=== PATIENT | male | born 1970 | race Caucasian/White ===

== ENCOUNTER 2021-11-20 13:51 | Outpatient (REF) | payer OTHER, SELFPAY ==
[2021-11-20 16:18] LABS: CT PCR NOT DETECTED (Not Detect.); NG PCR NOT DETECTED (Not Detect.)
== END 2021-11-20 13:52 | disposition home or self-care (01) ==
LOC: HO.LNP 13:51
PROVIDERS: Visit Provider Internal Medicine
DX: N34.2 Other urethritis (principal)
CPT/HCPCS: 87491; 87591

== ENCOUNTER 2023-11-13 10:33 | Outpatient (AMB) | payer OTHER, SELFPAY ==
--- NOTE | 2023-11-13 10:12 | MHC.OFFWIV ---
Intake Vital Signs 11/13/23 10:44 Weight 168 lb BP 140/80 H Blood Pressure Location Lt brachial Position Sitting Pulse 85 Pulse Source Pulse Oximeter Temp 98.5 F Temp Source Temporal Artery Scan Pulse Oximetry (%) 97 Oxygen Delivery Method Room Air Intake Visit Reasons: EP upset stomach Intake Note: pt is here today for upset stomach started 2 weeks ago Patient Tobacco Use Status: Never used Tobacco Allergies penicillin V Allergy (Unknown, Verified 11/13/23 10:40) hives/childhood allergy Penicillins [PENICILLINS] Allergy (Unknown, Verified 11/13/23 10:40) UNKNOWN Do you need a note to return to daycare/school/sports/work: No HPI HPI Comments History of Present Illness Details He presents to office with stomach upset 3 weeks ago had a stomach bug He took probiotics and tea which helped Prior to stomach bug he had a regular once a day formed BM He said now he has a slight loose stool every morning x 1 at 6:30 and then within the house has a similar BM No blood or black Not watery He denies formed stool since No sharp abdominal pain, + gas, and bloating/upset Has tried to cut out alcohol and caffeine these last 2 weeks without change Diet is kale salad/tofu Beer on occasion No nausea or vomiting He denies colonoscopy in past Has Sergei as PCP; last visit was over 1 year ago He tried gas x without relief PFSH Social History Patient Tobacco Use Status: Never used Tobacco Review of Systems Const Denies body aches, Denies chills, Denies fatigue and Denies fever(s) Card Denies chest pain and Denies dyspnea Resp Denies cough and Denies dyspnea GI Reports abdominal pain (upset. No pain), Denies melena, Reports bloating, Denies hematochezia, Denies constipation, Denies fecal incontinence, Denies diarrhea, Reports loose stools, Denies nausea and Denies vomiting Musc Denies back pain Endo Denies fatigue Physical Exam Vital Signs: Last Vital Signs Temp 98.5 F 11/13/23 10:44 Pulse 85 11/13/23 10:44 BP 140/80 H 11/13/23 10:44 Pulse Ox 97 11/13/23 10:44 Oxygen Delivery Method Room Air 11/13/23 10:44 General: Non-toxic, NAD. Speaking full sentences. Skin: Warm dry throughout Eye: EOMI HENT: Airway patent. Uvula midline. No pharyngeal erythema or edema. No HOSE TURNER. Respiratory: CTA bilaterally. No wheezes, rales or rhonchi Cardiac: RRR. No murmur Abdominal: BS present x 4. No tenderness to light and deep palpation. No rebound or guarding. No mass. MSK: Full ROM extremities. Neurology: A/O. No aphasia or facial droop. Gait without abnormality Psych: Good mood and affect Assessment & Plan Assessment & Plan (1) Loose stools: Code(s): R19.5 - Other fecal abnormalities Plan: Patient seen and evaluated. Non-toxic appearing, in NAD No risk factors for travelers diarrhea and he denies risk factors for c diff and there is no abnormal odor, stool is loose, not watery We discussed d/c probiotics Discussed need for colonoscopy and note will be sent to his PCP to schedule GI appointment. Pt aware of this We discussed bland diet We discussed s/s of concern that warrants repeat evaluation Patient gave verbal understanding and had no additional questions or concerns at time of discharge All questions answered Coding Level of Care Code Est Pt Level 3 (68924) Diagnoses Loose stools R19.5
[2023-11-13 10:44] VITALS: BP 140/80; PULSE 85; TEMP 36.9; O2SAT 97
== END 2023-11-13 11:48 | disposition home or self-care (01) ==
PROVIDERS: PCP Nurse Practitioner Family; Visit Provider Physician Assistant
DX: R19.5 Other fecal abnormalities (principal)
CPT/HCPCS: 99213

== ENCOUNTER 2024-02-10 13:33 | Outpatient (AMB) | payer OTHER, SELFPAY ==
[2024-02-10 13:36] VITALS: BP 147/88; PULSE 82; BMI 25.4
--- NOTE | 2024-02-10 13:36 | A.OFFVIS_ITS ---
Vital Signs 02/10/24 13:36 Height 5 ft 7 in Weight 162 lb 4.163 oz BMI 25.4 BP 147/88 H Blood Pressure Location Rt brachial Position Sitting Pulse 82 Intake Visit Reasons: Colonoscopy Screening Intake Note: Patient presents to in office visit today as a new patient for colonoscopy screening. CC: Patient reports that he had the norovirus back in the winter and ever since he has been having IBS symptoms . He went to see a survey crew chief and after that he states that 5 days of the week he is doing well but there are usually two days that he gets diarrhea. Per patient he has been watching his diet and taking probiotics but he does not feel is helping much. He also reports some gas and abdominal bloating. Patient quit drinking alcohol as well. 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 Accompanied by: Self / Same As Patient Allergies penicillin V Allergy (Unknown, Verified 02/10/24 13:42) hives/childhood allergy Penicillins [PENICILLINS] Allergy (Unknown, Verified 02/10/24 13:42) UNKNOWN HPI Comments Details: A 53 y/o with IBS sx- since norovirus last winter- cannot reset himself- he has done accupuncture-it elevates his mood-gives more energy- then has 5 or more days he has normal stool- then will have a loose BM-abdominal cramping resolves most times after bm He has 1-2 BM a day- sometimes can be loose- sees a survey crew chief- Appetite is good he has a very healthy diet No nausea, vomiting hematemesis, hematochezia fever or chills PFSH Surgical History No pertinent past surgical history Family History Paternal Uncle Lung cancer Social History (Updated 02/10/24 @ 13:54 by Sandra Julien PA-C) Alcohol intake: former Comment: quit drinking about 5 months ago Patient Tobacco Use Status: Never used Tobacco Current occupation: on [employer] Review of Systems Const All systems reviewed & are unremarkable except as noted in HPI and below Card Denies chest pain and Denies dyspnea Resp Denies dyspnea GI Denies abdominal pain, Reports GI cramping, Reports loose stools, Denies nausea and Denies vomiting Physical Exam Vital Signs: Last Vital Signs Pulse 82 02/10/24 13:36 BP 147/88 H 02/10/24 13:36 BMI result Body Mass Index 25.4 Const General: cooperative, healthy appearing, comfortable and no acute distress Orientation/consciousness: patient oriented x3 Limitations: no limitations Eyes Conjunctivae: conjunctivae normal Sclerae: sclerae normal Resp Effort & Inspection: normal respiratory effort and able to speak in complete sentences Auscultation: clear to auscultation bilaterally, no rales, no rhonchi and no wheezes Cardio Rate: regular rate Rhythm: regular rhythm Heart sounds: S1 normal heart sound present and S2 normal heart sound present GI Palpation (GI): Soft to palpation and nontender Auscultation: normal bowel sounds Skin General skin exam: no rashes or lesions noted Neuro General: patient oriented x3 Extrem General: Yes full ROM Psych Appearance: grossly normal and well kempt Mental Status: mental status grossly normal Speech and movement: Normal speech and movement present Affect: Anxious affect present Thought process: Normal thought process present Thought content: Normal thought content present Insight: Good insight present (Psych) Judgement: Good judgement present (Psych) Assessment & Plan Assessment & Plan (1) Loose stools: Comment: Very pleasant somewhat anxious 53-year-old male Code(s): R19.5 - Other fecal abnormalities Category: Medical Plan: Colonoscopy Lab Trial dicyclomine (2) Screening for colon cancer: Code(s): Z12.11 - Encounter for screening for malignant neoplasm of colon Category: Medical Plan: Colonoscopy Plan low fod map Orders: Orders Complete Blood Count Auto Diff 02/10/24 K52.9 - Noninfective gastroenteritis and colitis, unspecified Comprehensive Met. Panel 02/10/24 K58.9 - Irritable bowel syndrome without diarrhea Transglutaminase IgA 02/10/24 R19.7 - Diarrhea, unspecified Thyroid Stimulating Hormone 02/10/24 R19.8 - Other specified symptoms and signs involving the digestive system and abdomen Endomysial IgA rflx Titer 02/10/24 R19.5 - Other fecal abnormalities Erythrocyte Sedimentation Rate 02/10/24 R19.7 - Diarrhea, unspecified Colonoscopy - GI Use Only 02/10/24 Z12.11 - Encounter for screening for m alignant neoplasm of colon Medications: New bisacodyl (Dulcolax (bisacodyl)) Day before procedure @ 12 noon Take 4 tablets by mouth followed by large glass of water 20 mg (4 x 5 mg) PO ONCE 1 day PRN 4 tabs 0RF colonoscopy prep Z12.11 - Encounter for screening for malignant neoplasm of colon dicyclomine 10 mg PO BID 30 days 60 caps 0RF polyethylene glycol 3350 (Miralax) Take as directed by mouth the day before your procedure. 238 grams PO ONCE 1 day PRN 238 grams 0RF laxative effect Patient Instructions: Colonoscopy dicyclomine= he will call with progress labs He will call for results-any indication needs EGD will add Coding Level of Care Code New Pt Level 3 (37218) Diagnoses Loose stools R19.5 Screening for colon cancer Z12.11 Time Spent (min) 30
== END 2024-02-10 15:27 | disposition home or self-care (01) ==
PROVIDERS: PCP Nurse Practitioner Family; Visit Provider Physician Assistant
DX: R19.5 Other fecal abnormalities (principal); Z12.11 Encounter for screening for malignant neoplasm of colon
CPT/HCPCS: 99203

== ENCOUNTER 2024-02-10 13:33 | Outpatient (REF) | payer OTHER, SELFPAY ==
[2024-02-10 14:41] LABS: MANUAL DIFF FLAG NO
[2024-02-10 15:34] LABS: Basophils Absolute Auto 0.1 X10*3/uL (0.0-0.2); Basophils Percent Auto 0.7 % (0-2); Eosinophils Absolute Auto 0.6 X10*3/uL (0.0-0.4); Eosinophils Percent Auto 8.2 % (0-4); Hematocrit 39.1 % (42.0-52.0); Hemoglobin 13.2 g/dl (14.0-18.0); Imm Gran Abs Auto 0.02 X10*3/uL (0.00-0.03); Imm Gran Pct Auto 0.3 % (0.0-0.4); Lymphocytes Absolute Auto 2.4 X10*3/uL (1.2-4.9); Lymphocytes Percent Auto 32.6 % (20-40); Mean Corpuscular HGB Conc 33.8 g/dl (31.0-36.0); Mean Corpuscular Hemoglobin 29.6 pg (27.0-33.0); Mean Corpuscular Volume 87.7 fL (80.0-98.0); Mean Platelet Volume 10.6 fL (9.4-12.4); Monocytes Absolute Auto 0.6 X10*3/uL (0.1-1.2); Monocytes Percent Auto 8.4 % (2-11); Neutrophils Absolute Auto 3.6 x10*3/uL (2.0-8.3); Neutrophils Percent Auto 49.8 % (45-73); Platelet Count 240 X10*3/uL (160-400); Red Blood Count 4.46 X10*6/uL (4.60-5.80); Red Cell Distribution Width 12.8 % (11.0-16.0); White Blood Count 7.3 X10*3/uL (4.8-10.8)
[2024-02-10 16:21] LABS: Erythrocyte Sedimentation Rate 6 MM/HR (0-15)
[2024-02-10 16:26] LABS: Alanine Aminotransferase 22 U/L (0-40); Albumin Level 4.8 g/dL (3.5-5.0); Alkaline Phosphatase 84 U/L (39-117); Anion Gap 13 (12-20); Aspartate Amino Transferase 19 U/L (5-37); Bilirubin Total 0.3 mg/dL (0.0-1.0); Blood Urea Nitrogen 15 mg/dL (9-16); Calcium 9.8 mg/dL (8.4-10.2); Carbon Dioxide 27 mmol/L (22-29); Chloride 103 mmol/L (96-108); Estimated Glomerular Filt Rate > 60; Glucose Random 91 mg/dL (60-115); Potassium 3.5 mmol/L (3.3-5.1); Sodium 139 mmol/L (135-145); Total Protein 7.3 g/dL (6.5-8.0)
[2024-02-10 16:41] LABS: Thyroid Stimulating Hormone 0.92 uIU/mL (0.32-4.0)
[2024-02-12 20:09] LABS: Transglutaminase IgA <1.0 U/mL
[2024-02-15 12:13] LABS: Endomysial IgA Antibody Negative (Negative)
== END 2024-02-10 13:34 | disposition home or self-care (01) ==
LOC: HO.LAB 13:33
PROVIDERS: PCP Nurse Practitioner Family; Visit Provider Physician Assistant
DX: R19.8 Other specified symptoms and signs involving the digestive system and abdomen (principal); K52.9 Noninfective gastroenteritis and colitis, unspecified; R19.5 Other fecal abnormalities
CPT/HCPCS: 36415; 80053; 84443; 85025; 85652; 86231; 86364; 99202

== ENCOUNTER 2024-03-20 08:48 | Outpatient (AMB) | payer OTHER, SELFPAY ==
[2024-03-20 08:59] VITALS: BP 158/88; PULSE 79; O2SAT 98; BMI 25.4
--- NOTE | 2024-03-20 08:59 | A.OFFPC_ITS ---
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 Patient reports he has a colonoscopy scheduled for 06/24/24. Patient reports history of IBS and recent visit with Gastroenterology and [facility] [place] [place]- has since eliminated alcohol and coffee- feeling better since eliminating those 2 things. 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 Accompanied by: Self / Same As Patient Allergies penicillin V Allergy (Unknown, Verified 03/20/24 09:25) hives/childhood allergy Penicillins [PENICILLINS] Allergy (Unknown, Verified 03/20/24 09:25) UNKNOWN Medication List - Last Reconciled 03/20/24 by Tammy Scott, POT FIRER- bisacodyl (Dulcolax (bisacodyl)) 20 mg (4 x 5 mg) PO ONCE PRN 1 day dicyclomine 10 mg PO BID 30 days polyethylene glycol 3350 (Miralax) 238 grams PO ONCE PRN 1 day Tobacco use date assessed: 03/20/24 Dental Screening Dental Screen Date: 03/20/24 Did you have a dental visit in the last 12 months?: Yes Was dental information given to patient?: Patient has dentist HPI HPI Comments History of Present Illness Details 53-year-old male with anemia, IBS Health Maintenance: ? Colon to be scheduled along w/ EGD @ [facility] [place] [place] scheduled 06/2024 ? PSA ordered today ? Tdap 2015 Specialists: GI Accupuncture Here today for CPE and to est care. Labs from 02/10/2024 show mild anemia hemoglobin 13.2, hematocrit 39.1, RBCs 4.46, normal electrolytes, normal renal function, normal glucose, normal LFTs, normal TSH reviewed w/ him today. denies overt bleeding. does eat mostly vegetarian diet. does not take MVI or supplements. Monitoring BP at home SBP 120's and DBPs in the 70's Had norovirus 09/2023 recovered then cont w loose stools 2 BMS in the AM 1 solid and 1 loose and irritated, this lasted a few months Was referred to GI, consult note from 02/2024 reviewed. Given rx for dicycloamine, using PRN but has not feeling like he needed it. Doing FODMAP. Quit etoh 10/2023 and dairy and coffee but feels like GI sx are now well controlled. Admits stress can trigger his sx, too. Fried food also trigger sx. Remains active physically. Vision - wears glasses, last exam 2 years ago. Admits changes in his vision, will schedule new appt. Bifocals caused dizziness. Skin - has moles on his back that have been present for years w/o change, denies any new skin lesions. Plan Check screening labs today to include lipid profile, PSA. Check labs to further evaluate the cause of his anemia. We will update via the portal once the results are back. Return to the office in 1 year for complete physical exam, sooner as needed. [facility] Medical History (Updated 03/20/24 @ 12:47 by Tammy Scott, POT FIRER-) Rash Folliculitis Urethritis Loose stools Surgical History No pertinent past surgical history Family History Paternal Uncle Lung cancer Social History (Updated 03/20/24 @ 09:05 by Mira Duckworth [facility]) Household Members: Spouse [facility] Are you a primary animal daycare provider to a significant other at home: No Do you presently have visiting nurse or other home services: No Alcohol intake: former Comment: quit drinking about 5 months ago Patient Tobacco Use Status: Never used Tobacco e-Cigarette/Vaping Use: Never Used Substance Use Type: Marijuana service: No Current occupational status: employed Current occupation: [employer] Cognitive needs: No Hearing needs: No Vision needs: No Questionnaire PHQ-9 Over the last 2 weeks, how often have you been bothered by any of the following problems? 1. Little interest or pleasure in doing things: not at all 2. Feeling down, depressed, or hopeless: not at all 3. Trouble falling or staying asleep, or sleeping too much: not at all 4. Feeling tired or having little energy: not at all 5. Poor appetite or overeating: not at all 6. Feeling bad about yourself - or that you are a failure or have let yourself or your family down: not at all 7. Trouble concentrating on things, such as reading the newspaper or watching television: not at all 8. Moving or speaking so slowly that other people could have noticed. Or the opposite - being so fidgety or restless that you have been moving around a lot more than usual: not at all 9. Thoughts that you would be better off or of hurting yourself in some way: not at all Total score: 0 Depression Screening Interpretation: Negative Depression Screening Done: Yes 75068 - PHQ-9 Billing: Yes Source: Developed by Drs. Daniel Cortes, Destinee Powell, Anthony Morris and colleagues, with an educational davy from [employer]. Thrive Questionnaire Date Thrive assessed: 03/20/24 I am a: Patient What is your living situation today?: I have a steady place to live Within the past 12 months, did the food you bought not last and you didn't have the money to get more?: Never true Within the past 12 months, did you worry whether your food would run out before you got money to buy more?: Never true Do you have trouble paying for medicines?: No Do you have trouble getting transportation to medical appointments?: No Do you have trouble paying your heating and electricity bill?: No Do you have trouble taking care of your child, family member or friend?: No Do you have trouble with day-to-day activities such as bathing, preparing meals, shopping, managing finances, etc.?: No Are you currently unemployed and looking for a job?: No Are you interested in more education?: No Please select the resources that you would like help with: None Currently or been in a relationship where the following occur: No concerns reported THRIVE Score: 0 AUDIT C Alcohol Use Questionnaire (AUDIT-C) 1. How often do you have a drink containing alcohol?: Never 3. How often do you have six or more drinks on one occasion?: Never Total Score: 0 Score Reviewed/Action Taken: Yes MICHAEL-7 AMB Questionnaire MICHAEL-7 Date MICHAEL - 7 assessed: 03/20/24 Feeling nervous, anxious, or on edge: 0 = Not at all Not being able to stop or control worryin = Not at all Worrying too much about different things: 0 = Not at all Trouble relaxin = Not at all Being so restless that it is hard to sit still: 0 = Not at all Becoming easily annoyed or irritable: 0 = Not at all Feeling afraid as if something awful might happen: 0 = Not at all Total MICHAEL-7 score (0-4 normal; 5-9 mild; 10-14 moderate; 15-21 severe): 0 Source: Developed by Drs. Daniel Cortes, Destinee Powell, Anthony Morris and colleagues, with an educational davy from [employer]. MICHAEL-7 Assessment Billing MICHAEL-7 Assessment Tool: MICHAEL-7 Assessment 48592 Review of Systems Const Details: Constitutional: Denies fever. Skin: Denies rash. Eye: Denies eye pain. ENMT: Denies sore throat and nasal congestion. Respiratory: Denies shortness of breath and cough. Gastrointestinal: Denies nausea, vomiting or abdominal pain. Cardiovascular: Denies chest pain and syncope. Genitourinary: Denies dysuria. Musculoskeletal: Denies back pain and extremity pain. Neurologic: Denies headaches, confusion, and weakness. Psychiatric: Denies suicidal thoughts and substance abuse. Allergy/ Immunologic: Denies impaired immunity. Physical exam (Primary Care) Vital Signs: Last Vital Signs Pulse 79 03/20/24 08:59 BP 138/76 03/20/24 09:37 Pulse Ox 98 03/20/24 08:59 Oxygen Delivery Method Room Air 03/20/24 08:59 BMI result Body Mass Index 25.4 Tobacco/Smoking Status: Tobacco use Status Tobacco use date assessed 03/20/24 03/20/24 09:07 Patient Tobacco Use Status Never used Tobacco 03/20/24 09:07 e-Cigarette/Vaping Use Never Used 03/20/24 09:07 PHQ-9: PHQ-9 Score PHQ-9: Total score 0 03/20/24 09:40 Depression Screening Interpretation: Negative Thrive Assessment: Date of Thrive Assessment Date Thrive assessed 03/20/24 03/20/24 09:07 Currently or been in a relationship where the following occur: No concerns reported Const Other: General: Well developed, well nourished, in no acute distress. Appears stated age. Head: Normocephalic, atraumatic. Eyes: Pupils are equal, round and reactive to light and accommodation. Conjunc tivae are clear. Vision grossly normal. Ears: EACS cerumen impaction bilat, unable to see TM Nose: Patent, without discharge. Mouth: There are no ulcers or lesions noted. No inflammation, no post nasal drip, no plaques nor exudates. Neck: Supple, no adenopathy or thyromegaly. Lungs: Clear to auscultation bilaterally. No rales, rhonchi or wheeze noted. Good air flow in all sharma. Heart: Regular rate and rhythm. No murmurs, click, rubs or gallops are noted. Abdomen: Bowel sounds present in all quadrants. The abdomen is soft, nontender, with no masses or organomegaly noted. No hernias are noted. Musculoskeletal: Joints are nontender, without swelling, redness, or effusions. Range of motion is observed to be normal. Pulses: Peripheral pulses are equal and palpable bilaterally. Extremities: No clubbing, cyanosis nor edema is noted. Neurologic: Gait and station normal. Cranial Nerves 2-12 intact. Motor strength grossly symmetrical and intact. No sensory loss. Balance normal. Skin: No rashes, ulcers, or lesions noted. Turgor is good. Skin color is good. Hair and nails are without abnormalities. One flesh colored raised mole about the size of a popcorn see noted to back, 1 slightly raised brown mole with some dark discoloration about the size of a pencil eraser noted to back Psych: Normal eye contact, affect and mood appropriate, and normal interactions. Patient is alert and appropriate to context. Assessment and Plan Assessment & Plan (1) Encounter for general adult medical examination without abnormal findings: Code(s): Z00.00 - Encounter for general adult medical examination without abnormal fin dings (2) Anemia: Code(s): D64.9 - Anemia, unspecified Qualifiers: Anemia type: unspecified type Qualified Code(s): D64.9 - Anemia, unspecified (3) Laboratory exam ordered as part of routine general medical examination: Code(s): Z00.00 - Encounter for general adult medical examination without abnormal findings Orders: Orders Lipid Panel Today D64.9 - Anemia, unspecified, Z00.00 - Encounter for general adult medical examination without abnormal findings IRON PROFILE Today D64.9 - Anemia, unspecified, Z00.00 - Encounter for general adult medical examination without abnormal findings Vitamin B12 and Folate Today D64.9 - Anemia, unspecified, Z00.00 - Encounter for general adult medical examination without abnormal findings PSA, Ultra Sensitive Today D64.9 - Anemia, unspecified, Z00.00 - Encounter for general adult medical examination without abnormal findings Complete Blood Count no Diff Today D64.9 - Anemia, unspecified, Z00.00 - Encounter for general adult medical examination without abnormal findings Patient Instructions: Health screenings for men ages 40 to 64 You should visit your health care provider regularly, even if you feel healthy. The purpose of these visits is to: Screen for medical issues Assess your risk for future medical problems Encourage a healthy lifestyle Update vaccinations and other preventive care services Help you get to know your provider in case of an illness Information Even if you feel fine, you should still see your provider for regular checkups. These visits can help you avoid problems in the future. For example, the only way to find out if you have high blood pressure is to have it checked regularly. High blood sugar and high cholesterol level also may not have any symptoms in the early stages. Simple blood tests can check for these conditions. There are specific times when you should see your provider or receive specific health screenings. The [place] Preventive Services Task Force publishes a list of recommended screenings. Below are screening guidelines for men ages 40 to 64. BLOOD PRESSURE SCREENING Have your blood pressure checked at least once every year. Watch for blood pressure screenings in your area. Ask your provider if you can stop in to have your blood pressure checked. Ask your provider if you need your blood pressure checked more often if: You have diabetes, heart disease, kidney problems, or are overweight or have certain other health conditions You have a first-degree relative with high blood pressure You are Black Your blood pressure top number is from 120 to 129 mm Hg, or the bottom number is from 70 to 79 mm Hg If the top number is 130 mm Hg or greater or the bottom number is 80 mm Hg or greater, this is considered stage 1 hypertension. Schedule an appointment with your provider to learn how you can lower your blood pressure. Effects of age on blood pressure CHOLESTEROL SCREENING Cholesterol screening should begin at age 35 for men with no known risk factors for coronary heart disease. Repeat cholesterol screening should take place: Every 5 years for men with normal cholesterol levels More often if changes occur in lifestyle (including weight gain and diet) More often if you have diabetes, heart disease, kidney problems, or certain other conditions COLORECTAL CANCER SCREENING If you are under age 45, talk to your provider about getting screened. You may need to be screened if you have a strong family history of colon cancer or polyps. Screening may also be considered if you have risk factors such as a history of inflammatory bowel disease or polyps. If you are age 45 to 75, you should be screened for colorectal cancer. There are several screening tests available: A stool-based fecal occult blood (gFOBT) or fecal immunochemical test (FIT) every year A stool sDNA test every 1 to 3 years Flexible sigmoidoscopy every 5 years or every 10 years with stool testing FIT done every year CT colonography (virtual colonoscopy) every 5 years Colonoscopy every 10 years You may need a colonoscopy more often if you have risk factors for colorectal cancer, such as: Ulcerative colitis A personal or family history of colorectal cancer A history of growths in your colon called adenomatous polyps DENTAL EXAM Go to the dentist once or twice every year for an exam and cleaning. Your dentist will evaluate if you have a need for more frequent visits. DIABETES SCREENING All adults who do not have risk factors for diabetes should be screened starting at age 35 and repeated every 3 years. If you have other risk factors for diabetes, such as a first degree relative with diabetes, overweight or obesity, high blood pressure, prediabetes, or a history of heart disease, you may be tested more often. If you are overweight and have other risk factors, such as high blood pressure and are planning to become , screening is recommended. EYE EXAM Have an eye exam every 2 to 4 years ages 40 to 54 and every 1 to 3 years ages 55 to 64. Your provider may recommend more frequent eye exams if you have vision problems or glaucoma risk. Have an eye exam that includes an examination of your retina (back of your eye) at least every year if you have diabetes. IMMUNIZATIONS Commonly needed vaccines include: Flu shot: get one every year COVID-19 vaccine: ask your provider what is best for you Tetanus-diphtheria and acellular pertussis (Tdap) vaccine: have as one of your tetanus-diphtheria vaccines if you did not receive it as an adolescent Tetanus-diphtheria: have a booster (or Tdap) every 10 years Varicella vaccine: receive 2 doses if you never had chickenpox or the varicella vaccine and were born in 1980 or after Hepatitis B vaccine: receive 2, 3, or 4 doses, depending on your exact circumstances, if you did not receive these as a child or adolescent, until age 59 Shingles (herpes zoster) vaccine: at or after age 50 Ask your provider if you should receive other immunizations, especially if you have certain medical conditions, such as diabetes or are at increased risk for some diseases such as pneumonia. INFECTIOUS DISEASE SCREENING Screening for hepatitis C: all adults ages 18 to 79 should get a one-time test for hepatitis C. Screening for human immunodeficiency virus (HIV): all people ages 15 to 65 should get a one-time test for HIV. Depending on your lifestyle and medical history, you may need to be screened for infections such as syphilis, chlamydia, and other infections. LUNG CANCER SCREENING You should have an annual screening for lung cancer with low-dose computed tomography (LDCT) if: You are age 50 to 80 years AND You have a 20 pack-year smoking history AND You currently smoke or have quit within the past 15 years OSTEOPOROSIS SCREENING If you are age 50 to 64 and have risk factors for osteoporosis, you should discuss screening with your provider. Risk factors can include long-term steroid use, low body weight, smoking, heavy alcohol use, having a fracture after age 50, or a family history of hip fracture or osteoporosis. Osteoporosis PHYSICAL EXAM All adults should visit their provider from time to time, even if they are healthy. The purpose of these visits is to: Screen for diseases Assess risk of future medical problems Encourage a healthy lifestyle Update vaccinations and other preventive care services Maintain a relationship with a provider in case of an illness Your height, weight, and body mass index (BMI) should be checked at every exam. During your exam, your provider may ask you about: Depression and anxiety Diet and exercise Alcohol and tobacco use Safety, such as use of seat belts and smoke detectors Your medicines and risk for interactions PROSTATE CANCER SCREENING If you're 55 through 69 years old, before having the test, talk to your provider about the pros and cons of having a PSA test. Ask about: Whether screening decreases your chance of dying from prostate cancer. Whether there is any harm from prostate cancer screening, such as side effects from testing or overtreatment of cancer when discovered. Whether you have a higher risk of prostate cancer than others. If you are age 55 or younger, screening is not generally recommended. You should talk with your provider about if you have a higher risk for prostate cancer. Risk factors include: Having a family history of prostate cancer (especially a brother or father) Being If you choose to be tested, the PSA blood test is repeated over time (yearly or less often), though the best frequency is not known. Prostate examinations are no longer routinely done on men with no symptoms. Prostate cancer SKIN EXAM Your provider may check your skin for signs of skin cancer, especially if you're at high risk. People at high risk include those who have had skin cancer before, have close relatives with skin cancer, or have a weakened immune system. TESTICULAR EXAM The US Preventive Services Task Force (USPSTF) now recommends against performing testicular self-exams. Doing testicular self-exams has been shown to have little to no benefit. Walk-In Care (Urgent Care): We Make it Easy Walk-in for urgent medical issues such as: ? Seasonal Allergies ? Insect Bites ? Cough ? Diarrhea ? Acute Asthma Attacks ? Back, Knee or Joint Pain ? Ear Infection ? Fever without a Rash ? Headaches ? Nausea ? [place], Rash or Skin Irritation ? Sore Throat ? Sports Physicals ? Vomiting Most insurances are accepted. Patients do not need to be part of the [facility] to seek care at the walk-in clinic. Locations [facility] , [place] [address] ? [phone] [facility] in [place] provides services to ages 18 and over. Open Saturday-Saturday: 8 a.m. to 5 p.m. and Saturday: 9 a.m. to 3 p.m.* *Hours may vary due to staffing availability. To confirm Walk-In Care hours in [place], please call [phone]. [address] [place] [address] ? [phone] [facility] in [place] provides services to ages 12 and over. Open Saturday-Saturday: 8 a.m. to 5 p.m. Hours may vary due to staffing availability. To confirm Walk-In Care hours in [place], please call [phone]. LABORATORY SERVICES: [facility] [place] [place] Lab ? Primary Location [address] [place] [address] Saturday through Saturday 6:00 AM ? 5:00 PM Saturday 7:00 AM ? 11:00 AM* [phone] The [facility] [place] [place] Lab is centrally located near the front entrance of the [facility] for easy outpatient access. Convenient parking is provided for outpatients. *Hours may vary due to staffing availability. To confirm Laboratory hours for any location, please call [phone]. Offsite Location For your convenience, we offer offsite laboratory draw stations at the following locations: [address] [place] [address] ? [facility] [address] [facility], [address], [place] Saturday through Saturday 7:30 AM ? 1:00 PM* [phone] *Hours may vary due to staffing availability. To confirm Laboratory hours for any location, please call [phone]. [place] ? [address] Saturday through Saturday 6:00 AM ? 3:30 PM* Saturday 6:30 AM ? 3 PM* [phone] *Hours may vary due to staffing availability. To confirm Laboratory hours for any location, please call [phone] [place] [address] Saturday through Saturday 7:30 AM ? 4:00 PM* [phone] *Hours may vary due to staffing availability. To confirm Laboratory hours for any location, please call [phone] [place] [address] Saturday through 9:00 AM ? 4:00 PM* *Hours may vary due to staffing availability. To confirm Laboratory hours for any location, please call [phone]. Appointments are not necessary. Walk-ins are welcome. Like all the departments throughout the [facility], our Lab undergoes frequent reviews to ensure the quality and accuracy of test results, and our staff takes special pride in its status as a nationally accredited facility. Patient Portal: ONE PATIENT. ONE RECORD. BETTER CARE. [facility] has a fully integrated, cutting- edge mobile electronic health information system that has revolutionized the way we care for our patients and manage our organization. This system improves communication and coordination enabling us to provide safe, higher-quality care, and an overall positive experience for staff and patients. Our first priority, as always, is to deliver the highest quality care possible. The system is running in the background supporting that priority. This portal is for all [facility] services and practices. If you are experiencing any technical difficulties with enrolling or logging into the Patient Portal please complete the [facility] [place] [place] Patient Portal Technical Support Form. [facility] now offers a new secure on-line interactive tool for patients to review their health information ? ?Patient Portal. This interactive web portal will enable patients and their families to take an active role in their care by providing easy, secure access to their health information via the internet. The Patient Portal provides patients with instant access to their health information, including laboratory results, medications, allergies, demographic information, visit history, and more. In addition to managing their own care, parents and health care proxies with authorized consent will appreciate the ability to access the records of those individuals for whom they provide care. Please note: if you wish to gain access (Proxy) to another patient?s portal, you will be required to come to the Medical Records Department in person at [facility]. Both the patient giving proxy access and the proxy will need to provide photo identification and complete the appropriate authorization. The Patient Portal also allows track their appointments online. The [facility] [place] [place] Patient Portal also saves patients time by allowing them to submit updates to their demographic and contact information prior to their visits. Po rtal email notifications will also alert patients to any new activity on their portal, such as test results and new appointments. In order to initially enroll in the [facility] [place] [place] Patient Portal, you will need to enter some required information including the following: * your [facility] [place] [place] Medical Record number * your personal home email address * name * date of Please note: In order to enroll in the [facility] [place] [place] Patient Portal, we need to have your email address on file in your electronic medical record. ?The email address needs to be specific for one person (yourself) in order for your Portal enrollment to be successful. ?You can update your email address in person with our Registration staff when you are registering for a hospital visit. ?Otherwise, you will need to come to the Health Information Management (Medical Records) Department at [facility]. ?We are open from Saturday ? Saturday from 7:30 a.m. ? 4:30 p.m. ?You will be required to present a photo id. Once you have successfully enrolled in the Patient Portal, you will receive a one-time user id and password for the Portal, sent to your email address. ?This will allow you to log into the Patient Portal within 99 hrs and reset your own logon id and password, and define personal security questions. ?Once your permanent login and password have been set, you can log into the [facility] [place] [place] Patient Portal at any time via the blue button above or from the Portal Logon button on any page of the [facility] website. [facility] and [facility] encourage all of our patients to enroll in Patient Portal as it presents a valuable opportunity for patients and their families to actively participate in their care and stay healthy Welcome to [facility]. ?We look forward to working with you. Coding Level of Care Code New Pt Prev Care 40-64y(30514) Diagnoses Encounter for general adult medical examination without abnormal findings Z00.00 Anemia, unspecified type D64.9 Anemia type: unspecified type Laboratory exam ordered as part of routine general medical examination Z00.00 Additional Codes MICHAEL-7 Assessment Billing - MICHAEL-7 Assessment Tool: MICHAEL-7 Assessment [id number] ([id number])
[2024-03-20 09:37] VITALS: BP 138/76
== END 2024-03-20 12:44 | disposition home or self-care (01) ==
PROVIDERS: PCP Nurse Practitioner Family; Visit Provider Nurse Practitioner Family
DX: Z00.00 Encounter for general adult medical examination without abnormal findings (principal); D64.9 Anemia, unspecified
CPT/HCPCS: 99386

== ENCOUNTER 2024-03-20 10:10 | Outpatient (REF) | payer OTHER, SELFPAY ==
[2024-03-20 14:28] LABS: Hematocrit 39.9 % (42.0-52.0); Hemoglobin 13.4 g/dl (14.0-18.0); Mean Corpuscular HGB Conc 33.6 g/dl (31.0-36.0); Mean Corpuscular Hemoglobin 29.5 pg (27.0-33.0); Mean Corpuscular Volume 87.9 fL (80.0-98.0); Platelet Count 249 X10*3/uL (160-400); Red Blood Count 4.54 X10*6/uL (4.60-5.80); Red Cell Distribution Width 13.1 % (11.0-16.0); White Blood Count 6.3 X10*3/uL (4.8-10.8)
[2024-03-20 14:52] LABS: Cholesterol 217 mg/dL (<200); HDL Cholesterol 39 mg/dL (>40); Iron 85 mcg/dL (45-160); LDL Cholesterol Calculated 144 mg/dL (<100); Percent Iron Saturation 26 % (15-50); Total Iron Binding Capacity 332 mcg/dL (228-428); Triglycerides 170 mg/dL (<150); Unsaturated Iron Binding 247 ug/dL
[2024-03-20 15:15] LABS: Folate 10.5 ng/mL (> or = 4.0); Vitamin B12 378 pg/mL (200-900)
[2024-03-29 17:54] LABS: PSA, Ultra Sensitive 0.66 ng/mL
== END 2024-03-20 10:11 | disposition home or self-care (01) ==
LOC: HO.WFDLDS 10:10
PROVIDERS: Visit Provider Nurse Practitioner Family
DX: Z00.00 Encounter for general adult medical examination without abnormal findings (principal); D64.9 Anemia, unspecified
CPT/HCPCS: 36415; 80061; 82607; 82746; 83540; 84153; 85027

== ENCOUNTER 2024-05-02 08:09 | Emergency (ER) | payer OTHER, SELFPAY ==
[2024-05-02 08:11] VITALS: BP 187/88; PULSE 87; RESP 18; TEMP 36.3; O2SAT 99; BMI 25.7
--- NOTE | 2024-05-02 08:39 | ED.EAR ---
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 He has no headache. This has never happened before MD Complaint: other (hearing loss) Location: left ear Duration: constant Severity: moderate Relieving factors: nothing Exacerbating factors: nothing Context: recent illness Discharge from ear: no Associated symptoms ear: decreased hearing Treatment prior to arrival: attempt at ear wax removal Related Data Previous Rx's ?Medication ?Instructions ?Recorded bisacodyl 5 mg tablet,delayed 20 mg (4 x 5 mg) PO ONCE PRN 02/10/24 release (Dulcolax (bisacodyl)) colonoscopy prep 1 day #4 tabs dicyclomine 10 mg capsule 10 mg PO BID 30 days #60 caps 02/10/24 polyethylene glycol 3350 17 238 g PO ONCE PRN laxative effect 02/10/24 gram/dose oral powder (Miralax) 1 day #238 grams cefuroxime axetil 500 mg tablet 500 mg PO BID 7 days #14 tabs 05/02/24 ofloxacin 0.3 % ear drops 10 drp otic (ears) DAILY 7 days #5 05/02/24 mL Allergies Allergy/AdvReac Type Severity Reaction Status Date / Time penicillin V Allergy Unknown hives/childhood Verified 05/02/24 08:13 allergy Penicillins [PENICILLINS] Allergy Unknown UNKNOWN Verified 05/02/24 08:13 Review of Systems Review of Systems: Constitutional : No Fever, No Chills, No Fatigue ENT/Mouth : No sore throat, No Rhinorrhea, pos hearing loss Eyes: No Eye Pain, No Swelling, No Redness Cardiovascular : No Chest Pain, No SOB, No Dyspnea on Exertion Respiratory : No Cough, No Sputum Gastrointestinal : No Nausea, No Vomiting, No Diarrhea, No abdominal Pain Musculoskeletal : No joint pain, No Myalgias, No Joint Swelling Skin : No Skin Lesions, No rash Neuro : No Weakness, No Numbness, No Dizziness, positive Headache All other systems reviewed and are negative [facility] Past Medical History Attestation statement: The following information was validated with the patient. Source: old records reviewed Medical History Rash Folliculitis Urethritis Loose stools Surgical History No pertinent past surgical history Family History Family History Paternal Uncle Lung cancer Social History Social History Household Members: Spouse Housing: Condominium Are you a primary home health care coordinator to a significant other at home: No Do you presently have visiting nurse or other home services: No Alcohol intake: former Comment: quit drinking about 5 months ago Patient Tobacco Use Status: Never used Tobacco e-Cigarette/Vaping Use: Never Used Substance Use Type: Marijuana Advance Directives: No Advance Directives Information Provided: No service: No Current occupational status: employed Current occupation: [employer] Cognitive needs: No Hearing needs: No Vision needs: No Physical Exam Vital Signs: Vital Signs: Last Vital Signs Temp 97.3 F 05/02/24 08:11 Pulse 87 05/02/24 08:11 Resp 18 05/02/24 08:11 BP 187/88 H 05/02/24 08:11 Pulse Ox 99 05/02/24 08:11 O2 Del Method Room Air 05/02/24 08:11 BMI result Body Mass Index 25.7 Appearance: Alert. Oriented X3. No acute distress. Eyes: Pupils equal, round and reactive to light. ENT: Pharynx normal. R ear and TM normal. L TM yellow opacified with effusion retracted, small perforation noted inferiorly, canal is red swollen and bloody Neck: Normal inspection. Neck supple. CVS: Normal heart rate and rhythm. Pulses normal. Respiratory: No respiratory distress. Breath sounds normal. Abdomen: Soft and nontender. Skin: Skin warm and dry. Normal skin color. Extremities: No lower extremity edema. Neuro: Oriented X 3. No motor deficit. No sensory deficit. Medical Decision Making Medical Decision Making MDM Narrative: 54 yo male recent COVID s/p paxlovid now with L ear hearing loss on exam no mastoid ttp no neuro findings no headache at this time no concern for hemorrhage or aneurysm but will need abx and drops for AOM and perforation/externa. 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 No pulsatile ringing to suggest aneurysm and no headache or other findings to suggest mass. Differential Diagnosis Differential Diagnoses: The differential diagnosis associated with the presentation includes viral associated hearing loss, AOM, externa, ruptured ear drum Prescription Management I considered prescription management with: Antibiotic and Other Discharge Plan Discharge Clinical Impression: Otitis media Qualifiers: Otitis media type: suppurative Chronicity: acute Laterality: left Recurrence: non-recurrent Spontaneous tympanic membrane rupture: with spontaneous rupture Qualified Code(s): H66.012 - Acute suppurative otitis media with spontaneous rupture of ear drum, left ear Otitis externa Qualifiers: Otitis externa type: diffuse Chronicity: acute Laterality: left Qualified Code(s): H60.312 - Diffuse otitis externa, left ear Patient Disposition: Home, Self-Care Instructions: Otitis Externa (ED), Ruptured Eardrum (ED), Ear Infection (ED) Additional Instructions: return for worsening pain, fevers, headaches, swelling or any other concerns no water in ear for 7 days use cotton ball or ear plug as discussed call ENT Saturday am for follow up and audiology testing ENT [facility] [phone] [facility] call Saturday Prescriptions: New cefuroxime axetil 500 mg tablet 500 mg PO BID 7 Days Qty: 14 0RF ofloxacin 0.3 % drops 10 drp otic (ears) DAILY 7 Days Qty: 5 0RF No Action bisacodyl [Dulcolax (bisacodyl)] 5 mg tablet,delayed release (DR/EC) 20 mg PO ONCE PRN (Reason: colonoscopy prep) 1 Days Qty: 4 0RF Rx Instructions: Day before procedure @ 12 noon Take 4 tablets by mouth followed by large glass of water polyethylene glycol 3350 [Miralax] 17 gram/dose powder 238 g PO ONCE PRN (Reason: laxative effect) 1 Days Qty: 238 0RF Rx Instructions: Take as directed by mouth the day before your procedure. dicyclomine 10 mg capsule 10 mg PO BID 30 Days Qty: 60 0RF Print Language: Pashto
[2024-05-02 09:03] VITALS: BP 172/76; PULSE 82; RESP 16; TEMP 36.6; O2SAT 98
== END 2024-05-02 09:04 | disposition home or self-care (01) ==
PROVIDERS: Emergency Provider Emergency Medicine; PCP Nurse Practitioner Family
DX: H66.012 Acute suppurative otitis media with spontaneous rupture of ear drum, left ear (principal); H60.312 Diffuse otitis externa, left ear
CPT/HCPCS: 99282; 99283

== ENCOUNTER 2024-06-24 10:02 | Day surgery (SDC) | payer OTHER, SELFPAY ==
[2024-06-19 14:40] VITALS: BMI 25.4
--- NOTE | 2024-06-23 09:10 | P.CONAN_ITS ---
Documented by User: rBianne Barboza NP 06/23/24 09:10 HPI - Anesthesia Eval Consult details Narrative: 53yo M for Colonoscopy PMFSH Active Problems Active Problems: All Active Problems Encounter for general adult medical examination without abnormal findings (Acute) Laboratory exam ordered as part of routine general medical examination (Acute) Anemia (Acute) Screening for colon cancer (Acute) Past Medical History Medical History Anemia Loose stools Urethritis Folliculitis Rash Family History Family History Paternal Uncle Lung cancer Surgical History Surgical History No pertinent past surgical history Social History Social History Household Members: [facility] Are you a primary farm or ranch animal caretaker to a significant other at home: No Do you presently have visiting nurse or other home services: No Alcohol intake: former Patient Tobacco Use Status: Never used Tobacco e-Cigarette/Vaping Use: Never Used Substance Use Type: Marijuana Substance Use Type Other:: GUMMIES Substance Use Frequency: Occasionally Have you been hit, kicked, punched, or otherwise hurt by someone within the past year? If so, by whom?: No Are you DNR?: No Advance Directives: No Advance Directives Information Provided: Yes Recently lost weight without trying: No Nutrition Risks: No Nutritional Risk service: No Current occupational status: employed Current occupation: [employer] Cognitive needs: No Hearing needs: No Vision needs: No Meds Allergies Allergy/AdvReac Type Severity Reaction Status Date / Time penicillin V Allergy Unknown hives/childhood Verified 05/02/24 08:13 allergy Exam Height,Weight and Vital Signs: Height 5 ft 7 in Weight 73.482 kg Assessment and Plan Assessment Anesthesia Assessment: Chart Reviewed Documented by User: Caro Hilton MD 06/24/24 13:32 PMFSH Past Medical History Medical History Anemia Loose stools Urethritis Folliculitis Rash Family History Family History Paternal Uncle Lung cancer Family history of problems with anesthesia: No Surgical History Surgical History No pertinent past surgical history History of Problems with Anesthesia: No Social History Social History Household Members: [facility] Are you a primary farm or ranch animal caretaker to a significant other at home: No Do you presently have visiting nurse or other home services: No Alcohol intake: former Patient Tobacco Use Status: Never used Tobacco e-Cigarette/Vaping Use: Never Used Substance Use Type: Marijuana Substance Use Type Other:: GUMMIES Substance Use Frequency: Occasionally Have you been hit, kicked, punched, or otherwise hurt by someone within the past year? If so, by whom?: No Are you DNR?: No Advance Directives: No Advance Directives Information Provided: Yes Recently lost weight without trying: No Nutrition Risks: No Nutritional Risk service: No Current occupational status: employed Current occupation: [employer] Cognitive needs: No Hearing needs: No Vision needs: No Meds Allergies Allergy/AdvReac Type Severity Reaction Status Date / Time penicillin V Allergy Unknown hives/childhood Verified 05/02/24 08:13 allergy Exam Airway Mallampati Class: II TM Dist: >3cm Neck ROM: Full Heart: rrr Lungs: cta Assessment and Plan Assessment Anesthesia Assessment: Anesthesia Plan Discussed Final Anesthetic Review Family History of Problems with Anesthesia: No History of Problems with Anesthesia: No NPO: Yes ASA Class: II Final Preanesthetic Review: No Changes in Pt Med Stat, Meds/Allgs Chart Reviewed, Consent Obtained/Reviewed and Anes Risks/Benef Reviewed Patient Risk: Low Procedure Risk: Low Anesthetic Plan Anesthetic Plan: MAC: Disposition: Standard PACU
[2024-06-24 11:19] VITALS: BP 151/93; PULSE 98; RESP 18; TEMP 37.2; O2SAT 97; BMI 25.5
--- NOTE | 2024-06-24 11:56 | MHC.SHP ---
Pre-Procedural Eval Section A - 24 Hr Update-Section A only Date of Service: 06/24/24 Section B - Complete if H&P > 30 days Chief Complaint: Other fecal abnormalities Relevant Family History (Specify if Yes): No Relevant Social History: None Present Medications: see Short Stay Collaborative assessment Medical History: Significant History (Anemia Loose stools Urethritis Folliculitis Rash) History of Previous Operations: Relevant previous surgery/procedure and date(s) (No pertinent past surgical history) Allergies: Allergies Allergy/AdvReac Type Severity Reaction Status Date / Time penicillin V Allergy Unknown hives/childhood Verified 05/02/24 08:13 allergy Review of Systems Sugical H&P ROS: Negative: Constitution, Cardiovascular, Respiratory, Neurological, Psychiatric, Hem-Onc, Allergic/Immunologic, Gastrointestinal, Genitourinary, Musculoskeletal, Integumentary, Endocrine and Eyes/Ears/Nose/Throat Exam Surgical H&P Exam: Normal: HEENT, Normal: Heart, Normal: Lungs, Normal: Extremities, Normal: Abdomen, Normal: Skin and Normal: Neurological Plan Diagnosis/Plan: Unchanged I have reviewed the history and physical and performed a pertinent physical examination on my patient. No changes have occurred unless specified. Time Spent With Patient Time: Total time managing care of this patient today ____ minutes.
--- NOTE | 2024-06-24 12:32 | P.OPN-COLO_ITS ---
Colonoscopy Operative Note Operative Note Date of Service: 06/24/24 Narrative: Operative Information Procedure Description: Colonoscopy Indication: screening Anesthesia: MAC COLONOSCOPY Instrument: Olympus variable stiffness pediatric scope 190L Colonoscopy Monitoring: Vital signs and clinical assessment, continuous EKG monitoring, Pulse oximetry, Carbon Dioxide monitoring and blood pressure monitoring were done throughout the procedure. Colon withdrawal time was 9 minutes. Procedure: The patient was placed in the left lateral decubitis position and pre-procedure medications were administered. After a digital rectal examination of the ano-rectum, the video colonoscope was inserted into the rectum and advanced through the colon to the cecum/TI. The colonoscope was slowly withdrawn in a retrograde panoramic fashion and the colon mucosa was carefully examined including a retroflexed view of the rectum. Findings and interventions are described below. Procedure Difficulty: easy Findings: Terminal Ileum-normal Cecum: 4-5 mm sessile polyp removed with cold forceps Ascending Colon: normal Transverse Colon -normal Descending Colon:normal Sigmoid Colon: normal Rectum: Retroflexion with small internal hemorrhoids seen, grade I Anorectum - normal Intervention: cold forceps Colon preparation: [place] Bowel Preparation Scale Right colon; 2 Transverse colon: 2 Left colon; 2 (0 = Unprepared colon segment with mucosa not seen due to solid stool that cannot be cleared. 1 = Portion of mucosa of the colon segment seen, but other areas of the colon segment not well seen due to staining, residual stool and/or opaque liquid. 2 = Minor amount of residual staining, small fragments of stool and/or opaque liquid, but mucosa of colon segment seen well. 3 = Entire mucosa of colon segment seen well with no residual staining, small fragments of stool or opaque liquid) Impression and Post Procedure Diagnosis: colon polyp internal hemorrhoids Plan: High fiber diet leaflet Avoid straining at stool, epsom salts and sitz bath, anusol supps or cream Repeat Colonoscopy in 5-7 years if adenomatous or pre cancerous, otherwise 10 yrs if benign or earlier if clinically indicated Above findings were reviewed with the patient and relevant handouts were provided if indicated.
[2024-06-24 12:39] VITALS: BP 102/66; PULSE 78; RESP 16; TEMP 36.6; O2SAT 97
[2024-06-24 12:54] VITALS: BP 107/69; PULSE 66; RESP 16; O2SAT 97
[2024-06-24 13:10] VITALS: BP 123/88; PULSE 74; RESP 16; TEMP 36.3; O2SAT 99
== END 2024-06-24 13:48 | disposition home or self-care (01) ==
PROVIDERS: PCP Nurse Practitioner Family; Visit Provider Internal Medicine Gastroenterology
PROC: 0DJD8ZZ Inspection of Lower Intestinal Tract, Via Natural or Artificial Opening Endoscopic (ICD-10-PCS; CPT 45378; principal; 2024-06-24 12:30)
DX: Z12.11 Encounter for screening for malignant neoplasm of colon (principal); R19.7 Diarrhea, unspecified; R14.0 Abdominal distension (gaseous); Z86.19 Personal history of other infectious and parasitic diseases; D12.0 Benign neoplasm of cecum; K64.0 First degree hemorrhoids; D64.9 Anemia, unspecified; N34.2 Other urethritis; L73.8 Other specified follicular disorders; Z88.0 Allergy status to penicillin
CPT/HCPCS: 45380; 88305; J2003; J2250; J2704

== ENCOUNTER → 2024-06-24 10:02 | Outpatient (BNV) | payer OTHER, SELFPAY | PROVIDERS: PCP Nurse Practitioner Family; Visit Provider Internal Medicine Gastroenterology | DX: Z12.11 Encounter for screening for malignant neoplasm of colon (principal); D12.0 Benign neoplasm of cecum; K64.0 First degree hemorrhoids | CPT/HCPCS: 45380 ==

== ENCOUNTER 2025-04-15 14:47 | Outpatient (REF) | payer OTHER, SELFPAY ==
[2025-04-15 17:54] LABS: Hemoglobin A1C 129.0524 umol/L; Total Hemoglobin (HGBA1C) 3583.2681 umol/L
[2025-04-15 17:56] LABS: Hematocrit 38.8 % (42.0-52.0); Hemoglobin 13.4 g/dl (14.0-18.0); Mean Corpuscular HGB Conc 34.5 g/dl (31.0-36.0); Mean Corpuscular Hemoglobin 29.8 pg (27.0-33.0); Mean Corpuscular Volume 86.2 fL (80.0-98.0); NRBC Abs Auto 0.000 X10*3/uL (0.0-0.012); NRBC Pct Auto 0.0 /100WBC (0.0-0.2); Platelet Count 248 X10*3/uL (160-400); Red Blood Count 4.50 X10*6/uL (4.60-5.80); White Blood Count 8.3 X10*3/uL (4.8-10.8)
[2025-04-15 18:33] LABS: Alanine Aminotransferase 37 U/L (0-40); Albumin Level 5.1 g/dL (3.5-5.0); Alkaline Phosphatase 83 U/L (39-117); Anion Gap 16 (12-20); Aspartate Amino Transferase 35 U/L (5-37); Blood Urea Nitrogen 12 mg/dL (9-16); Calcium 9.6 mg/dL (8.4-10.2); Carbon Dioxide 23 mmol/L (22-29); Chloride 104 mmol/L (96-108); Cholesterol 260 mg/dL (<200); Estimated Glomerular Filt Rate > 60; HDL Cholesterol 38 mg/dL (>40); Iron 127 mcg/dL (45-160); Percent Iron Saturation 40 % (15-50); Potassium 3.7 mmol/L (3.3-5.1); Sodium 139 mmol/L (135-145); Total Iron Binding Capacity 318 mcg/dL (228-428); Total Protein 7.4 g/dL (6.5-8.0); Triglycerides 261 mg/dL (<150); Unsaturated Iron Binding 191 ug/dL
[2025-04-15 18:48] LABS: Folate 19.0 ng/mL (> or = 4.0); Vitamin B12 624 pg/mL (200-900)
== END 2025-04-15 14:48 | disposition home or self-care (01) ==
LOC: HO.WFDLDS 14:47
PROVIDERS: PCP Nurse Practitioner Family; Visit Provider Nurse Practitioner Family
DX: Z00.00 Encounter for general adult medical examination without abnormal findings (principal); Z23 Encounter for immunization; D64.9 Anemia, unspecified; E78.00 Pure hypercholesterolemia, unspecified; K58.9 Irritable bowel syndrome, unspecified; D22.9 Melanocytic nevi, unspecified; Z81.8 Family history of other mental and behavioral disorders
CPT/HCPCS: 36415; 80053; 80061; 82306; 82570; 82607; 82746; 83036; 83540; 84153; 84443; 85027; 90471; 90715; 96127; 99212; 99396

== ENCOUNTER 2025-04-15 14:47 | Outpatient (AMB) | payer OTHER, SELFPAY ==
--- NOTE | 2025-04-15 14:53 | A.OFFPC_ITS ---
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: No Allergies penicillin V Allergy (Unknown, Verified 04/15/25 15:11) hives/childhood allergy Medication List - Last Reconciled 04/15/25 by LYNNETTE Cox- dicyclomine 10 mg PO BID 30 days Tobacco use date assessed: 04/15/25 Dental Screening Dental Screen Date: 04/15/25 Did you have a dental visit in the last 12 months?: Yes Did you have a dental problem in the last 6 months where you did not have access to dental care?: No Was dental information given to patient?: Patient has dentist HPI HPI Comments History of Present Illness Details 55-year-old male with anemia, IBS, hx of L TM rupture now w/ tinnitus Fhx: Mom w/ dementia Surgery: Social: Health Maintenance: ? [place] [facility] [place] ? PSA ordered today ? Tdap 2024 Specialists: GI Accupuncture Optho wears glasses UTD on eye exam History of Present Illness - The patient is a 55-year-old male pres enting for a complete physical examination. - Anemia is managed with dietary adjustm ents and supplements. Last labs were stable. Taking Vit C, Folic acid, b12 Iron and Zinc supplement - IBS resolved; managed with acupuncture , diet modifications, and reduced alcohol intake. 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 Affecting L ear only - Home-monitored blood pressure is stabl e within goal range. Always high at MD office Monitoring BP at home SBP 120's and DBPs in the 70's - Recent colonoscopy in 2023 was normal. - History of COVID infection, resulting in resolved ear issues except for tinnitus. - Denies depression, avoids watching the news to prevent anxiety. -Remains active physically. Skin - has moles on his back that have been present for years w/o change, denies any new skin lesions. Social History - Regularly receives acupuncture twice a month - Alcohol consumption reduced to one or two beers, never intoxicated. - He exercises through hiking and stayin g active. - Eats a primarily vegetarian diet with occasional fish intake. - Does not typically engage in large soc ial gatherings; prefers independent activities. - Helps care for his mother, who lives i ndependently with home health aid assistance. Health Maintenance - Due for tetanus booster as last given in 2014; it was discussed during the visit. - A COVID vaccine is received yearly, an d the patient plans to get the upcoming one in the fall. - No recent flu vaccinations were discus sed. Review of Systems - Constitutional: Reports stable blood p ressure; done home monitoring. - Ears: Reports tinnitus in the left ear ; no issues in the right. - Cardiovascular: Denies concerns; vinicio tierney home BP monitoring routinely. - Gastrointestinal: Denies current IBS s ymptoms. - Psychological: Denies depression or an xiety; avoids news to prevent stress. Physical Exam General: Well developed, well nourished, in no acute distress. Appears stated age. Head: Normocephalic, atraumatic. Eyes: Pupils are equal, round and reactive to light and accommodation. Conjunctivae are clear. Vision grossly normal. Ears: TMs clear AU, EACS WNL. Nose: Patent, without discharge. Neck: Supple, no adenopathy or thyromegaly. Breast: Edu on SBE Lungs: Clear to auscultation bilaterally. No rales, rhonchi or wheeze noted. Good air flow in all sharma. Heart: Regular rate and rhythm. No murmurs, click, rubs or gallops are noted. Abdomen: Bowel sounds present in all quadrants. The abdomen is soft, nontender, with no masses or organomegaly noted. No hernias are noted. : Deferred. 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 Extremities: No clubbing, cyanosis nor edema is noted. Neurologic: Gait and station normal. Cranial Nerves 2-12 intact. Motor strength grossly symmetrical and intact. No sensory loss. Balance normal. Skin: No rashes, ulcers, or lesions noted. Turgor is good. Skin color is good. Hair and nails are without abnormalities. Moles on back present but unchanged and not concerning. Psych: Normal eye contact, affect and mood appropriate, and normal interactions. Patient is alert and appropriate to context. Negative for depression and anxiety. Results Labs from 02/10/2024 and 03/2024 show mild anemia hemoglobin 13.2, hematocrit 39.1, RBCs 4.46, normal electrolytes, normal renal function, normal glucose, normal LFTs, normal TSH high lipids, w/ him today. denies overt bleeding. ; does eat mostly vegetarian diet. Discussion Notes The patient and I discussed his health maintenance needs, including receiving the tetanus booster during this visit and planning for the COVID vaccine this fall. We reviewed infection risks and the benefits of continuing his current d ietary and lifestyle habits to manage anemia and IBS. The gradual improvement of his tinnitus was noted, and we agreed the primary management strategy is avoiding triggers and utilizing distractions. I encouraged him to stay active and maintain his reduced alcohol intake as it has been beneficial for his overall health. No safety concerns were found during today's evaluation, and I advised routine follow-up unless symptoms change. Patient was given time to ask questions. All questions were answered to their satisfaction. Assessment and Plan 1. Anemia - Continue dietary management and supple ment. 2. Irritable Bowel Syndrome - Resolved; maintain current lifestyle c hanges. 3. Tinnitus - Utilize distraction; monitor symptoms. 4. Health Maintenance - Tetanus booster administered. - COVID vaccine planned for fall. - Labs today Patient Instructions - Continue taking your supplements daily as advised. - Keep up with your regular acupuncture sessions. - Limit alcohol to one or two beers at a time for health benefits. - Follow a healthy diet with your vegeta shauna focus, occasionally including fish. - Plan to get your COVID vaccine as disc ussed in the fall. - Use distraction techniques to manage t innitus; engage in activities during quiet times. - Keep monitoring your blood pressure at home regularly. - Contact us if you notice changes in yo ur tinnitus, experience dizziness, or have new health concerns. - RTO 1 year CPE, sooner PRN Consent Patient was informed and verbally consented to the use of an ambient scribe for clinic note documentation during this visit. An additional 15 minutes was spent addressing the problem(s) noted at todays visit. This includes time spent before the visit reviewing the chart, time spent during the visit, and time spent after the visit on documentation reviewing laboratory results, diagnostic imaging, medications, performing a medically necessary evaluation, counseling on diagnoses, care coordination, ordering appropriate tests, ordering appropriate medications, review of tests performed by other providers, reporting test results with the patient, communication with other healthcare providers. [facility] Medical History (Updated 04/15/25 @ 15:53 by Tammy Scott [facility]) Anemia Folliculitis Loose stools Rash Urethritis Surgical History (Updated 04/15/25 @ 15:53 by Tammy Scott [facility]) History of colonoscopy (~06/2024) No pertinent past surgical history Family History Paternal Uncle Lung cancer Social History Household Members: Spouse Housing: Condominium Are you a primary managed care analyst to a significant other at home: No Do you presently have visiting nurse or other home services: No 75 years or older and lives alone: No Alcohol intake: former Patient Tobacco Use Status: Never used Tobacco e-Cigarette/Vaping Use: Never Used Substance Use Type: Marijuana service: No Current occupational status: employed Current occupation: [employer] Cognitive needs: No Hearing needs: No Vision needs: No Questionnaire PHQ-9 Over the last 2 weeks, how often have you been bothered by any of the following problems? 1. Little interest or pleasure in doing things: not at all 2. Feeling down, depressed, or hopeless: not at all 3. Trouble falling or staying asleep, or sleeping too much: not at all 4. Feeling tired or having little energy: not at all 5. Poor appetite or overeating: not at all 6. Feeling bad about yourself - or that you are a failure or have let yourself or your family down: not at all 7. Trouble concentrating on things, such as reading the newspaper or watching television: not at all 8. Moving or speaking so slowly that other people could have noticed. Or the opposite - being so fidgety or restless that you have been moving around a lot more than usual: not at all 9. Thoughts that you would be better off or of hurting yourself in some way: not at all Total score: 0 Depression Screening Interpretation: Negative Depression Screening Done: Yes 24466 - PHQ-9 Billing: Yes Source: Developed by Drs. Daniel Cortes, Destinee Powell, Anthony Morris and colleagues, with an educational davy from [employer]. Thrive Questionnaire Date Thrive assessed: 04/15/25 I am a: Patient What is your living situation today?: I have a steady place to live Within the past 12 months, did the food you bought not last and you didn't have the money to get more?: Never true Within the past 12 months, did you worry whether your food would run out before you got money to buy more?: Never true Do you have trouble paying for medicines?: No Do you have trouble getting transportation to medical appointments?: No Do you have trouble paying your heating and electricity bill?: No Do you have trouble taking care of your child, family member or friend?: No Do you have trouble with day-to-day activities such as bathing, preparing meals, shopping, managing finances, etc.?: No Are you currently unemployed and looking for a job?: No Are you interested in more education?: No Please select the resources that you would like help with: None Currently or been in a relationship where the following occur: No concerns reported THRIVE Score: 0 AUDIT C Alcohol Use Questionnaire (AUDIT-C) 1. How often do you have a drink containing alcohol?: 2-3 times a week 2. How many drinks containing alcohol do you have on a typical day when you are drinking?: 1 or 2 3. How often do you have six or more drinks on one occasion?: Never Total Score: 3 Score Reviewed/Action Taken: Yes MICHAEL-7 AMB Questionnaire MICHAEL-7 Date MICHAEL - 7 assessed: 04/15/25 Feeling nervous, anxious, or on edge: 0 = Not at all Not being able to stop or control worryin = Not at all Worrying too much about different things: 0 = Not at all Trouble relaxin = Not at all Being so restless that it is hard to sit still: 0 = Not at all Becoming easily annoyed or irritable: 0 = Not at all Feeling afraid as if something awful might happen: 0 = Not at all Total MICHAEL-7 score (0-4 normal; 5-9 mild; 10-14 moderate; 15-21 severe): 0 Source: Developed by Destinee Landaverde.W. Andre, Anthony Morris and colleagues, with an educational davy from [employer]. MICHAEL-7 Assessment Billing MICHAEL-7 Assessment Tool: MICHAEL-7 Assessment 36253 Physical exam (Primary Care) Vital Signs: Last Vital Signs Temp 96.9 F 04/15/25 14:55 Pulse 110 H 04/15/25 14:55 Resp 13 04/15/25 14:55 BP 163/80 H 04/15/25 14:55 Pulse Ox 98 04/15/25 14:55 Oxygen Delivery Method Room Air 04/15/25 14:55 BMI result Body Mass Index 26.5 Tobacco/Smoking Status: Tobacco use Status Tobacco use date assessed 04/15/25 04/15/25 14:57 Patient Tobacco Use Status Never used Tobacco 04/15/25 14:57 e-Cigarette/Vaping Use Never Used 04/15/25 14:57 PHQ-9: PHQ-9 Score PHQ-9: Total score 0 04/15/25 15:11 Depression Screening Interpretation: Negative Thrive Assessment: Date of Thrive Assessment Date Thrive assessed 04/15/25 04/15/25 14:57 Currently or been in a relationship where the following occur: No concerns reported Immunizations Boostrix Tdap 2.5 Lf unit-8 mcg-5 Lf/0.5 mL intramuscular syringe Performing Provider: JAD Cox [place] [facility] [place] [facility] Administered by: Hilario Lomas MA on 04/15/25 15:42 Dose Route Admin Location Dispensed Lot Number Expiration Date [facility] 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 0.5 mL IM Right Deltoid 0.5 mL [id number] 10/30/26 [id number] [employer] Total Dispensed Waste 0.5 mL 0 % VIS Given Date VIS Provided VIS Publication Date 04/15/25 Single Vaccine 21 Eligibility Eligibility Date Funding Source Not [facility] Eligible 04/15/25 Private Coding Level of Care Code Est Pt Level 2 (43855) Est Pt Prev Care 40-64y(55391) Diagnoses Encounter for general adult medical examination without abnormal findings Z00.00 Need for Tdap vaccination Z23 Laboratory exam ordered as part of routine general medical examination Z00.00 Anemia, unspecified type D64.9 Anemia type: unspecified type Family history of dementia Z81.8 Irritable bowel syndrome, unspecified type K58.9 Irritable bowel syndrome type: unspecified Benign mole D22.9 Additional Codes MICHAEL-7 Assessment Billing - MICHAEL-7 Assessment Tool: MICHAEL-7 Assessment 76272 ([id number]) PHQ-9 - 41528 - PHQ-9 Billing: Yes ([id number]) Assessment & Plan Assessment & Plan (1) Encounter for general adult medical examination without abnormal findings: Onset Date: ~04/15/25 Code(s): Z00.00 - Encounter for general adult medical examination without abnormal findings Category: Medical (2) Need for Tdap vaccination: Code(s): Z23 - Encounter for immunization Category: Medical (3) Laboratory exam ordered as part of routine general medical examination: Code(s): Z00.00 - Encounter for general adult medical examination without abnormal findings Category: Medical (4) Anemia: Code(s): D64.9 - Anemia, unspecified Category: Medical Qualifiers: Anemia type: unspecified type Qualified Code(s): D64.9 - Anemia, unspecified (5) Family history of dementia: Comment: MOM Code(s): Z81.8 - Family history of other mental and behavioral disorders Category: Medical (6) IBS (irritable bowel syndrome): Code(s): K58.9 - Irritable bowel syndrome, unspecified Category: Medical Qualifiers: Irritable bowel syndrome type: unspecified Qualified Code(s): K58.9 - Irritable bowel syndrome, unspecified (7) Benign mole: Code(s): D22.9 - Melanocytic nevi, unspecified Category: Medical Plan . Orders: Orders Complete Blood Count no Diff Today Z00.00 - Encounter for general adult medical examination without abnormal findings Comprehensive Met. Panel Today Z00.00 - Encounter for general adult medical examination without abnormal findings Lipid Panel Today Z00.00 - Encounter for general adult medical examination without abnormal findings Prostate Specific Antigen Scr Today Z00.00 - Encounter for general adult medical examination without abnormal findings Vitamin B12 and Folate Today Z00.00 - Encounter for general adult medical examination without abnormal findings Hemoglobin A1c Today Z00.00 - Encounter for general adult medical examination without abnormal findings IRON PROFILE Today Z00.00 - Encounter for general adult medical examination without abnormal findings Microalbumin, Random (w Creat) Today Z00.00 - Encounter for general adult medical examination without abnormal findings TSH reflex Free T4 Today Z00.00 - Encounter for general adult medical examination without abnormal findings Vitamin D 25-OH Total Today Z00.00 - Encounter for general adult medical examination without abnormal findings TDaP Immunization Today Z23 - Encounter for immunization Patient Instructions: Health screenings for men You should visit your health care provider regularly, even if you feel healthy. The purpose of these visits is to: Screen for medical issues Assess your risk for future medical problems Encourage a healthy lifestyle Update vaccinations and other preventive care services Help you get to know your provider in case of an illness Information Even if you feel fine, you should still see your provider for regular checkups. These visits can help you avoid problems in the future. For example, the only way to find out if you have high blood pressure is to have it checked regularly. High blood sugar and high cholesterol level also may not have any symptoms in the early stages. Simple blood tests can check for these conditions. There are specific times when you should see your provider or receive specific health screenings. The [place] Preventive Services Task Force publishes a list of recommended screenings. Below are screening guidelines for men ages 40 to 64. BLOOD PRESSURE SCREENING Have your blood pressure checked at least once every year. Watch for blood pressure screenings in your area. Ask your provider if you can stop in to have your blood pressure checked. Ask your provider if you need your blood pressure checked more often if: You have diabetes, heart disease, kidney problems, or are overweight or have certain other health conditions You have a first-degree relative with high blood pressure You are Black Your blood pressure top number is from 120 to 129 mm Hg, or the bottom number is from 70 to 79 mm Hg If the top number is 130 mm Hg or greater or the bottom number is 80 mm Hg or greater, this is considered stage 1 hypertension. Schedule an appointment with your provider to learn how you can lower your blood pressure. Effects of age on blood pressure CHOLESTEROL SCREENING Cholesterol screening should begin at age 35 for men with no known risk factors for coronary heart disease. Repeat cholesterol screening should take place: Every 5 years for men with normal cholesterol levels More often if changes occur in lifestyle (including weight gain and diet) More often if you have diabetes, heart disease, kidney problems, or certain other conditions COLORECTAL CANCER SCREENING If you are under age 45, talk to your provider about getting screened. You may need to be screened if you have a strong family history of colon cancer or polyps. Screening may also be considered if you have risk factors such as a history of inflammatory bowel disease or polyps. If you are age 45 to 75, you should be screened for colorectal cancer. There are several screening tests available: A stool-based fecal occult blood (gFOBT) or fecal immunochemical test (FIT) every year A stool sDNA test every 1 to 3 years Flexible sigmoidoscopy every 5 years or every 10 years with stool testing FIT done every year CT colonography (virtual colonoscopy) every 5 years Colonoscopy every 10 years You may need a colonoscopy more often if you have risk factors for colorectal cancer, such as: Ulcerative colitis A personal or family history of colorectal cancer A history of growths in your colon called adenomatous polyps DENTAL EXAM Go to the dentist once or twice every year for an exam and cleaning. Your dentist will evaluate if you have a need for more frequent visits. DIABETES SCREENING All adults who do not have risk factors for diabetes should be screened starting at age 35 and repeated every 3 years. If you have other risk factors for diabetes, such as a first degree relative with diabetes, overweight or obesity, high blood pressure, prediabetes, or a history of heart disease, you may be tested more often. If you are overweight and have other risk factors, such as high blood pressure and are planning to become , screening is recommended. EYE EXAM Have an eye exam every 2 to 4 years ages 40 to 54 and every 1 to 3 years ages 55 to 64. Your provider may recommend more frequent eye exams if you have vision problems or glaucoma risk. Have an eye exam that includes an examination of your retina (back of your eye) at least every year if you have diabetes. IMMUNIZATIONS Commonly needed vaccines include: Flu shot: get one every year COVID-19 vaccine: ask your provider what is best for you Tetanus-diphtheria and acellular pertussis (Tdap) vaccine: have as one of your tetanus-diphtheria vaccines if you did not receive it as an adolescent Tetanus-diphtheria: have a booster (or Tdap) every 10 years Varicella vaccine: receive 2 doses if you never had chickenpox or the varicella vaccine and were born in 1980 or after Hepatitis B vaccine: receive 2, 3, or 4 doses, depending on your exact circumstances, if you did not receive these as a child or adolescent, until age 59 Shingles (herpes zoster) vaccine: at or after age 50 Ask your provider if you should receive other immunizations, especially if you have certain medical conditions, such as diabetes or are at increased risk for some diseases such as pneumonia. INFECTIOUS DISEASE SCREENING Screening for hepatitis C: all adults ages 18 to 79 should get a one-time test for hepatitis C. Screening for human immunodeficiency virus (HIV): all people ages 15 to 65 should get a one-time test for HIV. Depending on your lifestyle and medical history, you may need to be screened for infections such as syphilis, chlamydia, and other infections. LUNG CANCER SCREENING You should have an annual screening for lung cancer with low-dose computed tomography (LDCT) if: You are age 50 to 80 years AND You have a 20 pack-year smoking history AND You currently smoke or have quit within the past 15 years OSTEOPOROSIS SCREENING If you are age 50 to 64 and have risk factors for osteoporosis, you should discuss screening with your provider. Risk factors can include long-term steroid use, low body weight, smoking, heavy alcohol use, having a fracture after age 50, or a family history of hip fracture or osteoporosis. Osteoporosis PHYSICAL EXAM All adults should visit their provider from time to time, even if they are healthy. The purpose of these visits is to: Screen for diseases Assess risk of future medical problems Encourage a healthy lifestyle Update vaccinations and other preventive care services Maintain a relationship with a provider in case of an illness Your height, weight, and body mass index (BMI) should be checked at every exam. During your exam, your provider may ask you about: Depression and anxiety Diet and exercise Alcohol and tobacco use Safety, such as use of seat belts and smoke detectors Your medicines and risk for interactions PROSTATE CANCER SCREENING If you're 55 through 69 years old, before having the test, talk to your provider about the pros and cons of having a PSA test. Ask about: Whether screening decreases your chance of dying from prostate cancer. Whether there is any harm from prostate cancer screening, such as side effects from testing or overtreatment of cancer when discovered. Whether you have a higher risk of prostate cancer than others. If you are age 55 or younger, screening is not generally recommended. You should talk with your provider about if you have a higher risk for prostate cancer. Risk factors include: Having a family history of prostate cancer (especially a brother or father) Being If you choose to be tested, the PSA blood test is repeated over time (yearly or less often), though the best frequency is not known. Prostate examinations are no longer routinely done on men with no symptoms. Prostate cancer SKIN EXAM Your provider may check your skin for signs of skin cancer, especially if you're at high risk. People at high risk include those who have had skin cancer before, have close relatives with skin cancer, or have a weakened immune system. TESTICULAR EXAM The [place] Preventive Services Task Force (USPSTF) now recommends against performing testicular self-exams. Doing testicular self-exams has been shown to have little to no benefit.
[2025-04-15 14:55] VITALS: BP 163/80; PULSE 110; RESP 13; TEMP 36.1; O2SAT 98; BMI 26.5
== END 2025-04-15 15:44 | disposition home or self-care (01) ==
LOC: HO.HMCFM 14:47
PROVIDERS: PCP Nurse Practitioner Family; Visit Provider Nurse Practitioner Family
DX: Z00.00 Encounter for general adult medical examination without abnormal findings (principal); D64.9 Anemia, unspecified; K58.9 Irritable bowel syndrome, unspecified; Z81.8 Family history of other mental and behavioral disorders; D22.9 Melanocytic nevi, unspecified; Z23 Encounter for immunization